=== PATIENT | female | born 1980 | race Caucasian/White ===

== ENCOUNTER 2016-10-12 18:27 | Emergency (ER) | payer BC ==
[~2016-10-12 18:27] MED LIST: ACID REDUCER; ACID REDUCER200 MG; ACID REDUCER200 MG PO; ADVIL MIGRAINE200 MG; ADVIL200 M1 PO; AUGMENTIN ES-6125 ML; BACLOFEN10 MG; BACTRIM 400-801 TAB PO; BENTYL20 MG; BENTYL20 MG PO; BONIVA150 MG; CELEXA20 MG PO; CHILD IBUP100 MG/5 M; CIPRO; CIPRO100 MG; CLONIDINE HCL0.1 MG PO; COMPAZINE10 M PO; COMPAZINE25 MG/SUPP PR; DARVOCET-N 1001 TAB; DETROL LA4 MG PO; ELAVIL10 MG; ELAVIL10 MG PO; ELAVIL25 MG; ENULOSE10 G/15 ML; EXCEDRIN EXTRA1 EAC4 PO; EXCEDRIN MIGRAI1 TAB PO; FLAGYL; FLEXERIL10 MG; FLEXERIL10 MG PO; FLUOXETINE20 MG/5 ML; GENOPTIC5 ML OU; H PO; IBUPROFEN; IPRATROPIUM0.2 MG/ML; KEFLEX500 MG PO; LORCET HD CAPSU1 CAP; LYRICA50 MG; MACROBID 100 M100 MG PO; MOTRIN600 MG; NAPROXEN500 MG PO; NAPROXYN500 MG/TA1 PO; NO MEDICATIONS; NORCO 5/325 TAB1 TAB; NORCO 5/325 TAB1 TAB PO; OLANZAPINE2.5 MG PO; OMEPRAZOLE20 M1 PO; OMEPRAZOLE40 MG PO; OSMOLITE CAL; OXYCODONE-APAP; PERCOCET 5/3251 TAB; PERCOCET 5/3251 TAB PO; PHENERGAN25 MG PO; PREMPRO 0.625/21 TAB; PRILOSEC OTC; PRILOSEC OTC20 MG; PRILOSEC20 MG; PROMETRIUM100 MG PO; PROPRANOLOL HCL40 MG; PROVENTIL2 MG/5 ML; PSEUDOEPHE30 MG/5 ML; REGLAN10 MG PO; REGLAN5 MG; ROBITUSSIN100 MG/5 M; SINEMET CR 21 TAB.SA; SSKI; TIZANIDINE HCL4 MG PO; TIZANIDINE PO; TRAMADOL HCL50 MG PO; TYLENOL W/CODEI1 TAB; TYLENOL W/CODEI1 TAB PO; TYLENOL325 MG; ULTRAM50 MG; ULTRAM50 MG PO; VALIUM5 MG; VICODIN 5/500 T1 TAB PO; VICODIN ES 7.51 EACH PO; WELLBUTRIN XL150 MG; XANAX2 MG PO; ZANTAC150 MG PO; ZITHROMAX250 MG PO; [UNRECOGNIZED DRUG - OTHER]; [UNRECOGNIZED DRUG - REMARK]
[2016-10-12] MEDS ORDERED: NORCO 5-325 TA1 EACH PO (20:41)
[2016-10-12] MEDS ORDERED: PREDNISONE10 M1 PO (20:41)
[2016-10-12] MEDS ORDERED: CYCLOBENZAPRINE10 M1 PO (20:41)
== END 2016-10-12 20:52 ==
LOC: EDMED 18:27
DX: S33.5XXA Sprain of ligaments of lumbar spine, initial encounter (principal); X50.1XXA Overexertion from prolonged static or awkward postures, initial encounter
CPT/HCPCS: J2360